=== PATIENT | male | born 1955 | race Caucasian/White ===

== ENCOUNTER 2023-09-30 11:45 | Outpatient (RCR) | payer OTHER, MEDICAID, SELFPAY | END 2023-09-30 12:30 | LOC: CAR 11:45 | PROVIDERS: PCP Student in an Organized Health Care Education/Training Program; Referring Provider Internal Medicine; Visit Provider Internal Medicine | DX: I42.8 Other cardiomyopathies (principal) | CPT/HCPCS: 93798 ==